=== PATIENT | female | born 1995 | race Caucasian/White ===

== ENCOUNTER 2017-05-09 21:55 | Emergency (ER) | payer MEDICAID, OTHER, SELFPAY ==
[~2017-05-09] VITALS: Ht 160 cm; Wt 51.0 kg
[~2017-05-09 21:55] MED LIST: BACT400T; CEPH500C; IBUP600T; ROCE1INJ
[2017-05-09 21:56] VITALS: BP_DIAS 57
[2017-05-09] MEDS ORDERED: BENA25TA10 PO (22:38)
[2017-05-09] MEDS ORDERED: PRED10TA2 PO (22:38)
[2017-05-09] MEDS ORDERED: diphenhydrAMINE 50 MG CAP PO ONE (22:45)
[2017-05-09] MEDS ORDERED: predniSONE 20 MG TAB PO ONE (22:45)
[2017-05-09 23:26] VITALS: BP_SYST 62
== END 2017-05-09 23:26 | disposition home or self-care (01) ==
LOC: M ED 21:55
DX: L25.5 Unspecified contact dermatitis due to plants, except food (principal); L29.9 Pruritus, unspecified; Z87.891 Personal history of nicotine dependence

== ENCOUNTER 2018-07-08 23:31 | Emergency (ER) | payer OTHER, MEDICAID ==
[2018-07-09] MEDS: predniSONE 20 MG TAB PO (00:15)
[2018-07-09] MEDS: diphenhydrAMINE 25 MG CAP PO (00:15)
[2018-07-09] MEDS: FAMOTIDINE 20 MG TAB PO (00:15)
== END 2018-07-09 00:55 | disposition home or self-care (01) ==
LOC: M ED 23:31
DX: S80.862A Insect bite (nonvenomous), left lower leg, initial encounter (principal); W57.XXXA Bitten or stung by nonvenomous insect and other nonvenomous arthropods, initial encounter; Y92.89 Other specified places as the place of occurrence of the external cause; Z91.030 Bee allergy status; Z87.891 Personal history of nicotine dependence
CPT/HCPCS: 99282

== ENCOUNTER 2018-08-02 22:29 | Emergency (ER) | payer OTHER, MEDICAID ==
[2018-08-02] MEDS: TUSSICAPS ER 10/8MG CAPSULE PO (23:26)
[2018-08-02] MEDS: IBUPROFEN 600 MG TAB PO (23:26)
== END 2018-08-02 23:30 | disposition home or self-care (01) ==
LOC: M ED 22:29
DX: J20.9 Acute bronchitis, unspecified (principal); F90.9 Attention-deficit hyperactivity disorder, unspecified type; M41.9 Scoliosis, unspecified; Z87.891 Personal history of nicotine dependence; Z91.030 Bee allergy status
CPT/HCPCS: 99282

== ENCOUNTER 2019-02-21 12:35 | Emergency (ER) | payer MEDICAID, OTHER ==
[~2019-02-21] VITALS: Ht 160 cm; Wt 53.6 kg
[~2019-02-21 12:35] MED LIST changes: +BENA25TA10 PO; +GUAI1SOL2 PO; +IBUP-1022 PO; +PRED10TA2 PO; +PRED20TA PO; +TESS100C PO; +TUSS1CAP5 PO
[2019-02-21] MEDS ORDERED: NS 1,000 ML IV ONE (13:00)
[2019-02-21 13:21] LABS: HEMATOCRIT 41.9 % (36.0-47.0); MEAN CORPUSCULAR HEMOGLOBIN 32.9 pg (27.0-33.0); MEAN CORPUSCULAR HGB CONC 33.4 g/dl (32.0-36.5); MEAN CORPUSCULAR VOLUME 98.6 fl (80.0-96.0); PLATELET COUNT, AUTOMATED 345 10^3/uL (150-450); RED BLOOD COUNT 4.25 10^6/uL (4.00-5.40); WHITE BLOOD COUNT 7.4 10^3/uL (4.0-10.0)
[2019-02-21 13:53] LABS: BLOOD UREA NITROGEN 10 MG/DL (7-18); C REACTIVE PROTEIN QUANTITATIV < 0.30 MG/DL (0.00-0.30); CALCIUM LEVEL 8.5 MG/DL (8.5-10.1); CARBON DIOXIDE LEVEL 29 MEQ/L (21-32); CHLORIDE LEVEL 107 MEQ/L (98-107); CREATININE FOR GFR 0.69 MG/DL (0.55-1.30); GLOMERULAR FILTRATION RATE > 60.0 (>60); GLUCOSE, FASTING 84 MG/DL (70-100); POTASSIUM SERUM 3.6 MEQ/L (3.5-5.1); SODIUM LEVEL 141 MEQ/L (136-145)
[2019-02-21] MEDS ORDERED: ISOVUE-370 76% 100ML VIAL (Q9967) As Ordered ONE (14:08)
[2019-02-21] MEDS ORDERED: CLINDAMYCIN 900 MG in APPROPRIATE DILUENT 1 EA IV ONE (16:00)
[2019-02-21] MEDS ORDERED: BACT800T5 PO (16:31)
[2019-02-21] MEDS ORDERED: BACTRIM 160MG/800MG DS TAB PO ONE (16:45)
[2019-02-21 16:52] VITALS: BP 109/54
[2019-02-22 01:35] LABS: ERYTHROCYTE SEDIMENTATION RATE 7 mm/hr (0-20)
--- NOTE | 2019-02-22 09:17 | REP ---
Maxillofacial CT with IV contrast for right orbital swelling: There is soft tissue edema in the right infraorbital area. There is no focal fluid collection. Findings are compatible with cellulitis. There is no abscess. The ocular globes and lenses are unremarkable. The orbital fat planes are unremarkable. There is a mucosal cyst in the right maxillary sinus. The visualized paranasal sinuses and mastoid air cells otherwise are clear. The skull base and sella turcica are unremarkable. Impression: Right infraorbital cellulitis. There is no abscess. Right maxillary sinus mucosal cyst. Electronically Signed by Chele Tadeo MD 02/21/2019 03:31 P
[2019-02-22] MEDS ORDERED: IBUP80TA PO (11:17)
== END 2019-02-21 17:28 | disposition home or self-care (01) ==
LOC: M ED 12:35
DX: L03.213 Periorbital cellulitis (principal); J34.1 Cyst and mucocele of nose and nasal sinus; Z91.030 Bee allergy status; F17.210 Nicotine dependence, cigarettes, uncomplicated
CPT/HCPCS: 70487; 80048; 83605; 85027; 85652; 86140; 87040; 96365; 99284; Q9967

== ENCOUNTER 2019-02-22 09:21 | Emergency (ER) | payer OTHER ==
[~2019-02-22] VITALS: Ht 160 cm; Wt 52.8 kg
[~2019-02-22 09:21] MED LIST changes: +BACT800T5 PO
[2019-02-22 09:22] VITALS: BP 105/59
[2019-02-22] MEDS ORDERED: NS 1,000 ML IV ONE (09:45)
[2019-02-22 10:03] LABS: HEMATOCRIT 38.4 % (36.0-47.0); MEAN CORPUSCULAR HEMOGLOBIN 33.5 pg (27.0-33.0); MEAN CORPUSCULAR HGB CONC 33.9 g/dl (32.0-36.5); PLATELET COUNT, AUTOMATED 320 10^3/uL (150-450); RED BLOOD COUNT 3.88 10^6/uL (4.00-5.40); WHITE BLOOD COUNT 6.9 10^3/uL (4.0-10.0)
[2019-02-22 10:13] LABS: BLOOD UREA NITROGEN 8 MG/DL (7-18); C REACTIVE PROTEIN QUANTITATIV < 0.30 MG/DL (0.00-0.30); CALCIUM LEVEL 8.3 MG/DL (8.5-10.1); CARBON DIOXIDE LEVEL 27 MEQ/L (21-32); CHLORIDE LEVEL 110 MEQ/L (98-107); CREATININE FOR GFR 0.75 MG/DL (0.55-1.30); GLOMERULAR FILTRATION RATE > 60.0 (>60); GLUCOSE, FASTING 91 MG/DL (70-100); SODIUM LEVEL 142 MEQ/L (136-145)
[2019-02-22] MEDS ORDERED: CLINDAMYCIN 900 MG in APPROPRIATE DILUENT 1 EA IV ONE (10:45)
[2019-02-22] MEDS ORDERED: IBUP80TA PO (11:17)
== END 2019-02-22 11:24 | disposition home or self-care (01) ==
LOC: M ED 09:21
DX: L03.213 Periorbital cellulitis (principal); Z72.0 Tobacco use; Z91.030 Bee allergy status

== ENCOUNTER 2019-06-08 22:52 | Emergency (ER) | payer MEDICAID, OTHER ==
[~2019-06-08] VITALS: Ht 157.5 cm; Wt 55.9 kg
[~2019-06-08 22:52] MED LIST changes: +IBUP80TA PO
[2019-06-08 22:53] VITALS: BP 113/62
[2019-06-08] MEDS ORDERED: LAMO25TA4 PO (23:02)
== END 2019-06-09 00:55 | disposition left against medical advice (07) ==
LOC: M ED 22:52
DX: S29.009A Unspecified injury of muscle and tendon of unspecified wall of thorax, initial encounter (principal); X58.XXXA Exposure to other specified factors, initial encounter; Y92.9 Unspecified place or not applicable; Y93.9 Activity, unspecified; Y99.9 Unspecified external cause status; Z53.21 Procedure and treatment not carried out due to patient leaving prior to being seen by health care provider

== ENCOUNTER → 2019-07-22 | Outpatient (REF) | payer OTHER, MEDICAID ==
[~2019-07-22] MED LIST changes: +LAMO25TA4 PO
[2019-07-22 22:18] LABS: INFLUENZA A AMPLIFICATION NEGATIVE (NEGATIVE); INFLUENZA B AMPLIFICATION NEGATIVE (NEGATIVE)
== END ==
LOC: M LAB REF 09:44
PROVIDERS: ATTEND Physician Assistant
DX: J11.1 Influenza due to unidentified influenza virus with other respiratory manifestations (principal)

== ENCOUNTER 2019-08-17 10:06 | Emergency (ER) | payer MEDICAID, OTHER ==
[~2019-08-17] VITALS: Ht 157.5 cm; Wt 52.7 kg
[2019-08-17] MEDS ORDERED: METF-791 PO (10:16)
[2019-08-17] MEDS ORDERED: ARIP1TAB6 PO (10:16)
[2019-08-17] MEDS ORDERED: DIVA1TAB48 PO (10:16)
[2019-08-17] MEDS ORDERED: NAPROXEN 250 MG TAB PO ONE (11:15)
--- NOTE | 2019-08-17 11:48 | REP ---
Left hip: Two views. History: Left hip pain. Question injury. Findings: AP and frog-leg views of the left hip demonstrate smooth rounded femoral head and intact hip joint space. Periarticular soft tissues are unremarkable. There is mild clothing artifact. Impression: Negative radiographs of the left hip. Electronically Signed by Jason Blanton MD 08/17/2019 01:52 P
[2019-08-17] MEDS ORDERED: NAPR-837 PO (11:57)
[2019-08-17 12:03] VITALS: BP 106/56
== END 2019-08-17 12:04 | disposition home or self-care (01) ==
LOC: M ED 10:06
DX: M25.552 Pain in left hip (principal); M79.605 Pain in left leg; S76.012A Strain of muscle, fascia and tendon of left hip, initial encounter; X58.XXXA Exposure to other specified factors, initial encounter; Y92.89 Other specified places as the place of occurrence of the external cause; Y93.9 Activity, unspecified; Y99.9 Unspecified external cause status

== ENCOUNTER → 2019-08-24 | Outpatient (CLI) | payer OTHER ==
[~2019-08-24] MED LIST changes: +ARIP1TAB6 PO; +DIVA1TAB48 PO; +METF-791 PO; +NAPR-837 PO
[2019-08-24 07:01] LABS: HEMATOCRIT 41.4 % (36.0-47.0); HEMOGLOBIN 13.8 g/dl (12.0-15.5); MEAN CORPUSCULAR HEMOGLOBIN 33.1 pg (27.0-33.0); MEAN CORPUSCULAR HGB CONC 33.3 g/dl (32.0-36.5); MEAN CORPUSCULAR VOLUME 99.3 fl (80.0-96.0); PLATELET COUNT, AUTOMATED 332 10^3/uL (150-450); RED BLOOD COUNT 4.17 10^6/uL (4.00-5.40); WHITE BLOOD COUNT 13.2 10^3/uL (4.0-10.0)
[2019-08-24 07:31] LABS: ALBUMIN 3.7 GM/DL (3.2-5.2); ALT/SGPT 15 U/L (12-78); BILIRUBIN,TOTAL 0.3 MG/DL (0.2-1.0); BLOOD UREA NITROGEN 16 MG/DL (7-18); CALCIUM LEVEL 8.9 MG/DL (8.5-10.1); CARBON DIOXIDE LEVEL 27 MEQ/L (21-32); CHLORIDE LEVEL 109 MEQ/L (98-107); CHOLESTEROL LEVEL 162 MG/DL (<200); CHOLESTEROL RISK RATIO 3.056 (<5); GLOMERULAR FILTRATION RATE > 60.0 (>60); GLUCOSE, FASTING 90 MG/DL (70-100); HDL CHOLESTEROL 53 MG/DL (>40); LDL CHOLESTEROL 87 MG/DL (<100); NON-HDL-C 109 MG/DL; SODIUM LEVEL 141 MEQ/L (136-145); TRIGLYCERIDES LEVEL 108 MG/DL (<150); VALPROIC ACID (DEPAKOTE) 14.7 UG/ML (50.0-100.0)
== END ==
LOC: M LAB 06:24
PROVIDERS: ATTEND Psychiatry & Neurology Psychiatry
DX: F31.9 Bipolar disorder, unspecified (principal); F32.2 Major depressive disorder, single episode, severe without psychotic features

== ENCOUNTER → 2019-09-10 | Outpatient (CLI) | payer MEDICAID | LOC: M OUTALCOH 08:39 | PROVIDERS: ATTEND Psychiatry & Neurology Psychiatry | DX: F12.10 Cannabis abuse, uncomplicated (principal) ==

== ENCOUNTER 2019-09-29 13:04 | Outpatient (RCR) | payer MEDICAID | END 2019-10-03 | LOC: M OUTALCOH 13:04 | PROVIDERS: ATTEND Psychiatry & Neurology Psychiatry | DX: F12.10 Cannabis abuse, uncomplicated (principal) ==

== ENCOUNTER → 2019-10-31 | Outpatient (REF) | payer MEDICAID, OTHER | LOC: M LAB REF 13:54 | PROVIDERS: ATTEND Physician Assistant Medical | DX: R05 Cough (principal) ==

== ENCOUNTER 2019-12-17 10:57 | Emergency (ER) | payer MEDICAID, OTHER ==
[~2019-12-17] VITALS: Ht 157.5 cm; Wt 58.4 kg
[2019-12-17] MEDS ORDERED: REXU1TAB3 PO (11:09)
[2019-12-17] MEDS ORDERED: ONDANSETRON 4 MG ORAL DISINTEGRATING TAB (Q0162 PER 1MG) PO ONE (12:30)
[2019-12-17] MEDS ORDERED: ACETAMINOPHEN 325 MG TAB PO ONE (12:30)
[2019-12-17 12:51] LABS: INFLUENZA A AMPLIFICATION NEGATIVE (NEGATIVE); INFLUENZA B AMPLIFICATION POSITIVE (NEGATIVE)
[2019-12-17] MEDS ORDERED: BENZ200C70 PO (13:16)
[2019-12-17] MEDS ORDERED: ONDA4TAB6 PO (13:16)
[2019-12-17 13:26] VITALS: BP 102/67
== END 2019-12-17 13:32 | disposition home or self-care (01) ==
LOC: M ED 10:57
DX: J10.1 Influenza due to other identified influenza virus with other respiratory manifestations (principal); R50.9 Fever, unspecified; R53.83 Other fatigue; Z91.030 Bee allergy status; F17.218 Nicotine dependence, cigarettes, with other nicotine-induced disorders
CPT/HCPCS: 87502; 99283; Q0162

== ENCOUNTER 2020-06-20 22:05 | Emergency (ER) | payer OTHER, MEDICAID ==
[~2020-06-20 22:05] MED LIST changes: +ACETAMINOPHEN TAB 650MG DOSE (2X325MG) As Ordered ONE; +ACETAMINOPHEN TAB 650MG DOSE (2X325MG) ONE; +BENZ200C70 PO; +IBUPROFEN 600MG TAB As Ordered ONE; +IBUPROFEN 600MG TAB ONE; -METF-791 PO; +METF-838 PO; +ONDA4TAB6 PO; +REXU1TAB3 PO
[2020-06-20] MEDS ORDERED: MAGIC MOUTHWASH SUSPENSION BTL ONE (22:06)
[2020-06-20] MEDS ORDERED: BENZONATATE 100 MG CAP ONE (23:21)
[2020-06-20] MEDS ORDERED: AMOXICILLIN 500 MG CAP ONE (23:21)
[2020-06-20] MEDS ORDERED: BENZONATATE 100 MG CAP As Ordered ONE (23:21)
[2020-06-20] MEDS ORDERED: AMOXICILLIN 500 MG CAP As Ordered ONE (23:22)
== END 2020-06-20 23:50 | disposition home or self-care (01) ==
LOC: M ED 22:05
DX: J02.0 Streptococcal pharyngitis (principal); R05 Cough; R50.9 Fever, unspecified; Z91.030 Bee allergy status

== ENCOUNTER → 2020-09-21 | Outpatient (REF) | payer OTHER ==
[~2020-09-21] MED LIST changes: -ACETAMINOPHEN TAB 650MG DOSE (2X325MG) As Ordered ONE; -ACETAMINOPHEN TAB 650MG DOSE (2X325MG) ONE; -IBUPROFEN 600MG TAB As Ordered ONE; -IBUPROFEN 600MG TAB ONE
[2020-09-21 13:49] LABS: HEMATOCRIT 38.9 % (36.0-47.0); MEAN CORPUSCULAR HEMOGLOBIN 33.1 pg (27.0-33.0); MEAN CORPUSCULAR HGB CONC 33.4 g/dl (32.0-36.5); PLATELET COUNT, AUTOMATED 366 10^3/uL (150-450); RED BLOOD COUNT 3.93 10^6/uL (4.00-5.40); WHITE BLOOD COUNT 7.7 10^3/uL (4.0-10.0)
[2020-09-21 14:18] LABS: ALBUMIN 3.8 GM/DL (3.2-5.2); ALT/SGPT 17 U/L (12-78); BILIRUBIN,TOTAL 0.4 MG/DL (0.2-1.0); BLOOD UREA NITROGEN 13 MG/DL (7-18); CALCIUM LEVEL 8.7 MG/DL (8.5-10.1); CARBON DIOXIDE LEVEL 29 MEQ/L (21-32); CHLORIDE LEVEL 109 MEQ/L (98-107); CREATININE FOR GFR 0.61 MG/DL (0.55-1.30); FERRITIN 54 NG/ML (8-252); GLOMERULAR FILTRATION RATE > 60.0 (>60); GLUCOSE, FASTING 79 MG/DL (70-100); IRON (FE) 99 UG/DL (50-170); PERCENT SATURATION 40.6 % (13.2-45.0); POTASSIUM SERUM 4.6 MEQ/L (3.5-5.1); SODIUM LEVEL 141 MEQ/L (136-145); THYROID STIMULATING HORMONE 0.282 uIU/ML (0.358-3.740); TOTAL IRON BINDING CAPACITY 244 UG/DL (250-450); TOTAL PROTEIN 6.7 GM/DL (6.4-8.2)
[2020-09-21 14:20] LABS: VITAMIN B12 LEVEL 252 PG/ML (247-911)
== END ==
LOC: M SFHCPLAZ 11:48
PROVIDERS: ATTEND Nurse Practitioner Adult Health
DX: R53.83 Other fatigue (principal); T14.8XXA Other injury of unspecified body region, initial encounter; Z83.49 Family history of other endocrine, nutritional and metabolic diseases

== ENCOUNTER 2020-11-26 15:46 | Emergency (ER) | payer OTHER ==
[~2020-11-26] VITALS: Ht 160 cm; Wt 61.9 kg
--- NOTE | 2020-11-26 16:54 | REP ---
INDICATION: trauma. COMPARISON: None. TECHNIQUE: Four views FINDINGS: There is a subtle lucency seen in the lunate I cannot rule out a nondisplaced fracture.. IMPRESSION: Possible hairline fracture of the lunate. <Electronically signed by Graeme Chairez > 11/26/20 [id number]
--- NOTE | 2020-11-26 16:58 | REP ---
INDICATION: trauma, posterior lower rib pain. COMPARISON: Two view chest of 11/01/2013 FINDINGS: Multiple views of the left ribs show no fracture or osseous lesion. The accompanying frontal view of the chest shows no cardiomegaly, infiltrates, effusions, or pneumothoraces. IMPRESSION: Negative left rib series. <Electronically signed by Graeme Chairez > 11/26/20 [id number]
[2020-11-26 18:11] VITALS: BP 114/62
== END 2020-11-26 18:35 | disposition home or self-care (01) ==
LOC: M ED 15:46
DX: S20.211A Contusion of right front wall of thorax, initial encounter (principal); S62.121A Displaced fracture of lunate [semilunar], right wrist, initial encounter for closed fracture; W01.0XXA Fall on same level from slipping, tripping and stumbling without subsequent striking against object, initial encounter; Y92.019 Unspecified place in single-family (private) house as the place of occurrence of the external cause; Y93.9 Activity, unspecified; Y99.9 Unspecified external cause status; Z91.030 Bee allergy status

== ENCOUNTER → 2021-01-04 | Outpatient (CLI) | payer OTHER ==
--- NOTE | 2021-01-04 14:20 | REPPI ---
INDICATION: MID BACK PAIN COMPARISON: None. TECHNIQUE: AP, lateral, bilateral oblique, and coned-down views of the lumbar spine. FINDINGS: Significant scoliosis is appreciated through the thoracolumbar spine. Vertebral bodies are intact and without acute fracture/compression injury or subluxation. Spondylolysis at L3 cannot be excluded. IMPRESSION: Significant scoliosis and possible L3 spondylolysis without spondylolisthesis. <Electronically signed by Fernando Yanes > 01/04/21 [id number]
--- NOTE | 2021-01-04 14:21 | REPPI ---
INDICATION: MID BACK PAIN COMPARISON: None. TECHNIQUE: AP, lateral, and swimmers views. FINDINGS: Significant scoliosis through the thoracolumbar spine is appreciated. Vertebral bodies are otherwise intact and relatively normal. Disc spaces are relatively normal. IMPRESSION: Marked scoliosis. <Electronically signed by Fernando Yanes > 01/04/21 [id number]
== END ==
LOC: M PLAIMG 13:51
PROVIDERS: ATTEND Nurse Practitioner Adult Health
DX: M41.85 Other forms of scoliosis, thoracolumbar region (principal); M54.6 Pain in thoracic spine

== ENCOUNTER 2022-09-19 14:15 | Emergency (ER) | payer OTHER ==
[~2022-09-19] VITALS: Ht 157.5 cm; Wt 56.4 kg
[2022-09-19] MEDS ORDERED: ACETAMINOPHEN 325 MG TAB PO ONE (14:50)
[2022-09-19] MEDS ORDERED: ONDANSETRON 4MG ORAL DISINTEGRATING TAB PO ONE (14:50)
[2022-09-19 15:11] LABS: BASO % 0.3 % (0.0-1.0); EOS # 0.1 10^3/uL (0.0-0.5); EOS % 0.5 % (0.0-3.0); HEMATOCRIT 33.6 % (36.0-47.0); HEMOGLOBIN 11.8 g/dl (12.0-15.5); LYMPH # 3.1 10^3/uL (1.5-5.0); LYMPH % 24.3 % (24.0-44.0); MEAN CORPUSCULAR HEMOGLOBIN 32.9 pg (27.0-33.0); MEAN CORPUSCULAR HGB CONC 35.1 g/dl (32.0-36.5); MEAN CORPUSCULAR VOLUME 93.6 fl (80.0-96.0); MONO # 0.8 10^3/uL (0.0-0.8); MONO % 5.9 % (2.0-8.0); NEUTROPHILS # 8.8 10^3/uL (1.5-8.5); NEUTROPHILS % 68.5 % (36.0-66.0); PLATELET COUNT, AUTOMATED 314 10^3/uL (150-450); RED BLOOD COUNT 3.59 10^6/uL (4.00-5.40); WHITE BLOOD COUNT 12.8 10^3/uL (4.0-10.0)
[2022-09-19] MEDS ORDERED: METR-265 PO (15:50)
[2022-09-19 16:08] LABS: BLOOD UREA NITROGEN 10 MG/DL (9-23); CALCIUM LEVEL 8.9 MG/DL (8.5-10.1); CARBON DIOXIDE LEVEL 24 MMOL/L (20-31); CHLORIDE LEVEL 103 MMOL/L (98-107); CREATININE FOR GFR 0.38 MG/DL (0.55-1.30); GLOMERULAR FILTRATION RATE > 60.0 (>60); GLUCOSE, FASTING 79 MG/DL (60-100); POTASSIUM SERUM 3.6 MMOL/L (3.5-5.1); SODIUM LEVEL 138 MMOL/L (136-145)
[2022-09-19 16:27] LABS: HCG, SERUM QUANTITATIVE 71175.8 MIU/ML (<4.2)
[2022-09-19 17:04] LABS: GC DNA AMPLIFICATION NEGATIVE (NEGATIVE)
[2022-09-19 17:24] VITALS: BP 125/56
== END 2022-09-19 17:28 | disposition home or self-care (01) ==
LOC: M ED 14:15
DX: O23.591 Infection of other part of genital tract in pregnancy, first trimester (principal); O99.611 Diseases of the digestive system complicating pregnancy, first trimester; R14.0 Abdominal distension (gaseous); Z3A.13 13 weeks gestation of pregnancy; Z87.891 Personal history of nicotine dependence; Z91.030 Bee allergy status; Z79.1 Long term (current) use of non-steroidal anti-inflammatories (NSAID); Z79.811 Long term (current) use of aromatase inhibitors; Z79.899 Other long term (current) drug therapy

== ENCOUNTER → 2022-09-20 | Outpatient (CLI) | payer OTHER ==
[~2022-09-20] MED LIST changes: +METR-265 PO
[2022-09-20 18:27] LABS: HEMATOCRIT 35.6 % (36.0-47.0); MEAN CORPUSCULAR HEMOGLOBIN 33.1 pg (27.0-33.0); MEAN CORPUSCULAR HGB CONC 33.7 g/dl (32.0-36.5); MEAN CORPUSCULAR VOLUME 98.1 fl (80.0-96.0); PLATELET COUNT, AUTOMATED 342 10^3/uL (150-450); RED BLOOD COUNT 3.63 10^6/uL (4.00-5.40)
[2022-09-20 19:18] LABS: HEPATITIS C VIRUS ABY INDEX 0.1 INDEX (<0.8); HIV 1&2 SCREEN CENTAUR NEGATIVE (NEGATIVE)
== END ==
LOC: M PLALAB 12:16
PROVIDERS: ATTEND Advanced Practice Midwife
DX: Z34.01 Encounter for supervision of normal first pregnancy, first trimester (principal); Z3A.00 Weeks of gestation of pregnancy not specified

== ENCOUNTER 2022-10-07 12:36 | Emergency (ER) | payer OTHER ==
[~2022-10-07] VITALS: Ht 160 cm; Wt 57.5 kg
[2022-10-07 12:37] VITALS: BP 130/57
[2022-10-07] MEDS ORDERED: DOCU100C16 (12:43)
== END 2022-10-07 14:03 | disposition home or self-care (01) ==
LOC: M ED 12:36
DX: O99.611 Diseases of the digestive system complicating pregnancy, first trimester (principal); K59.00 Constipation, unspecified; F17.200 Nicotine dependence, unspecified, uncomplicated; Z3A.15 15 weeks gestation of pregnancy; Z91.030 Bee allergy status; Z79.899 Other long term (current) drug therapy

== ENCOUNTER 2022-10-19 17:21 | Emergency (ER) | payer OTHER, MEDICAID ==
[~2022-10-19] VITALS: Ht 157.5 cm; Wt 58.4 kg
[~2022-10-19 17:21] MED LIST changes: +DOCU100C16
[2022-10-19 19:55] LABS: BASO % 0.3 % (0.0-1.0); EOS # 0.1 10^3/uL (0.0-0.5); EOS % 0.4 % (0.0-3.0); HEMATOCRIT 30.6 % (36.0-47.0); HEMOGLOBIN 10.8 g/dl (12.0-15.5); LYMPH # 1.1 10^3/uL (1.5-5.0); LYMPH % 9.1 % (24.0-44.0); MEAN CORPUSCULAR HEMOGLOBIN 33.1 pg (27.0-33.0); MEAN CORPUSCULAR HGB CONC 35.3 g/dl (32.0-36.5); MEAN CORPUSCULAR VOLUME 93.9 fl (80.0-96.0); MONO % 8.4 % (2.0-8.0); NEUTROPHILS # 9.4 10^3/uL (1.5-8.5); NEUTROPHILS % 81.3 % (36.0-66.0); PLATELET COUNT, AUTOMATED 279 10^3/uL (150-450); RED BLOOD COUNT 3.26 10^6/uL (4.00-5.40); WHITE BLOOD COUNT 11.6 10^3/uL (4.0-10.0)
[2022-10-19 20:14] LABS: LIPASE 27 U/L (12-53)
[2022-10-19 20:16] LABS: ALBUMIN 3.1 G/DL (3.2-5.2); ALKALINE PHOSPHATASE 54 U/L (46-116); ALT/SGPT 24 U/L (7.0-40); AST/SGOT 28 U/L (<34); BILIRUBIN,DIRECT < 0.1 MG/DL (<0.4); BILIRUBIN,TOTAL 0.3 MG/DL (0.3-1.2); BLOOD UREA NITROGEN 9 MG/DL (9-23); CALCIUM LEVEL 9.3 MG/DL (8.5-10.1); CARBON DIOXIDE LEVEL 19 MMOL/L (20-31); CHLORIDE LEVEL 104 MMOL/L (98-107); CREATININE FOR GFR 0.41 MG/DL (0.55-1.30); GLOMERULAR FILTRATION RATE > 60.0 (>60); GLUCOSE, FASTING 73 MG/DL (60-100); POTASSIUM SERUM 3.9 MMOL/L (3.5-5.1); SODIUM LEVEL 134 MMOL/L (136-145); TOTAL PROTEIN 6.2 G/DL (5.7-8.2)
[2022-10-19] MEDS ORDERED: ACETAMINOPHEN 1000MG 100ML IV BAG IV ONE (20:40)
[2022-10-19] MEDS ORDERED: ONDANSETRON 4MG 2ML VIAL IV ONE (22:00)
[2022-10-19] MEDS ORDERED: ONDA4TAB6 PO (23:33)
[2022-10-19 23:37] VITALS: BP 111/60
[2022-10-19 23:43] LABS: GC DNA AMPLIFICATION NEGATIVE (NEGATIVE)
== END 2022-10-19 23:47 | disposition home or self-care (01) ==
LOC: M ED 17:21
DX: O26.892 Other specified pregnancy related conditions, second trimester (principal); R10.2 Pelvic and perineal pain; F31.9 Bipolar disorder, unspecified; M41.9 Scoliosis, unspecified; Z91.030 Bee allergy status; Z3A.19 19 weeks gestation of pregnancy; Z79.899 Other long term (current) drug therapy
CPT/HCPCS: 76815; 80048; 80076; 81002; 83690; 85025; 87210; 87661; 87810; 87850; 96374; 96375; 99284; J0131; J2405

== ENCOUNTER → 2022-11-07 | Outpatient (REF) | payer OTHER ==
[2022-11-07 19:38] LABS: GC DNA AMPLIFICATION NEGATIVE (NEGATIVE)
== END ==
LOC: M SFHCWAGY 16:57
PROVIDERS: ATTEND Advanced Practice Midwife
DX: Z34.01 Encounter for supervision of normal first pregnancy, first trimester (principal)

== ENCOUNTER → 2022-11-07 | Outpatient (CLI) | payer OTHER | LOC: M WHC 07:06 | PROVIDERS: ATTEND Obstetrics & Gynecology | DX: Z34.92 Encounter for supervision of normal pregnancy, unspecified, second trimester (principal); Z3A.20 20 weeks gestation of pregnancy ==

== ENCOUNTER → 2022-12-21 | Outpatient (CLI) | payer OTHER, MEDICAID ==
[2022-12-21 14:15] LABS: HEMATOCRIT 29.2 % (36.0-47.0); HEMOGLOBIN 9.8 g/dl (12.0-15.5); MEAN CORPUSCULAR HEMOGLOBIN 33.6 pg (27.0-33.0); MEAN CORPUSCULAR HGB CONC 33.6 g/dl (32.0-36.5); PLATELET COUNT, AUTOMATED 349 10^3/uL (150-450); RED BLOOD COUNT 2.92 10^6/uL (4.00-5.40); WHITE BLOOD COUNT 13.1 10^3/uL (4.0-10.0)
[2022-12-21 15:36] LABS: GC DNA AMPLIFICATION NEGATIVE (NEGATIVE)
== END ==
LOC: M PLALAB 09:17
PROVIDERS: ATTEND Specialist
DX: Z34.02 Encounter for supervision of normal first pregnancy, second trimester (principal)

== ENCOUNTER → 2023-01-02 | Outpatient (CLI) | payer OTHER ==
[~2023-01-02] MED LIST changes: +PRENTAB7
== END ==
LOC: M RAD 11:56
PROVIDERS: ATTEND Specialist
DX: Z34.02 Encounter for supervision of normal first pregnancy, second trimester (principal); Z3A.28 28 weeks gestation of pregnancy

== ENCOUNTER 2023-01-04 08:39 | Emergency (ER) | payer OTHER ==
[~2023-01-04] VITALS: Ht 160 cm; Wt 66.2 kg
[~2023-01-04 08:39] MED LIST changes: -PRENTAB7
[2023-01-04] MEDS ORDERED: PRENTAB7 (08:50)
[2023-01-04 09:48] LABS: HEMATOCRIT 28.8 % (36.0-47.0); HEMOGLOBIN 9.8 g/dl (12.0-15.5); MEAN CORPUSCULAR HEMOGLOBIN 33.4 pg (27.0-33.0); MEAN CORPUSCULAR VOLUME 98.3 fl (80.0-96.0); PLATELET COUNT, AUTOMATED 283 10^3/uL (150-450); RED BLOOD COUNT 2.93 10^6/uL (4.00-5.40); WHITE BLOOD COUNT 14.9 10^3/uL (4.0-10.0)
[2023-01-04 10:10] LABS: BLOOD UREA NITROGEN 8 MG/DL (9-23); CALCIUM LEVEL 8.3 MG/DL (8.5-10.1); CARBON DIOXIDE LEVEL 26 MMOL/L (20-31); CHLORIDE LEVEL 103 MMOL/L (98-107); CREATININE FOR GFR 0.46 MG/DL (0.55-1.30); GLOMERULAR FILTRATION RATE > 60.0 (>60); GLUCOSE, FASTING 96 MG/DL (60-100); POTASSIUM SERUM 3.9 MMOL/L (3.5-5.1); SODIUM LEVEL 135 MMOL/L (136-145)
[2023-01-04 10:38] LABS: APPEARANCE, URINE CLEAR (CLEAR); BACTERIA, URINE AUTO 1+ (NEGATIVE); BILIRUBIN, URINE AUTO NEGATIVE (NEGATIVE); BLOOD, URINE BLOOD NEGATIVE (NEGATIVE); COLOR, URINE YELLOW (YELLOW); GLUCOSE, URINE (UA) AUTO NEGATIVE (NEGATIVE); KETONE, URINE AUTO NEGATIVE (NEGATIVE); LEUKOCYTE ESTERASE, URINE AUTO NEGATIVE (NEGATIVE); NITRITE, URINE AUTO NEGATIVE (NEGATIVE); PROTEIN, URINE AUTO NEGATIVE (NEGATIVE); RBC, URINE AUTO 1 /HPF (0-3); SPECIFIC GRAVITY URINE AUTO 1.008 (1.002-1.035); SQUAMOUS EPITHELIAL CELL UR AU 3 /HPF (0-6); UROBILINOGEN, URINE AUTO 0.2 mg/dL (0.0-2.0); WBC, URINE AUTO 1 /HPF (0-3)
[2023-01-04] MEDS ORDERED: NS 1,000 ML IV ONE (11:40)
[2023-01-04] MEDS ORDERED: METOCLOPRAMIDE INJ 10MG/2ML VIAL IV ONE (11:45)
[2023-01-04 14:44] VITALS: BP 119/67
== END 2023-01-04 15:26 | disposition home or self-care (01) ==
LOC: M ED 08:39
DX: O98.513 Other viral diseases complicating pregnancy, third trimester (principal); U07.1 COVID-19; O26.893 Other specified pregnancy related conditions, third trimester; M54.50 Low back pain, unspecified; Z91.030 Bee allergy status; Z3A.30 30 weeks gestation of pregnancy; Z79.810 Long term (current) use of selective estrogen receptor modulators (SERMs)
CPT/HCPCS: 80048; 81001; 85027; 87486; 87581; 87633; 87798; 96361; 96374; 99284; J2765

== ENCOUNTER → 2023-01-25 | Outpatient (CLI) | payer OTHER ==
[~2023-01-25] MED LIST changes: +PRENTAB7
== END ==
LOC: M LAB 07:15
PROVIDERS: ATTEND Advanced Practice Midwife
DX: Z34.80 Encounter for supervision of other normal pregnancy, unspecified trimester (principal)

== ENCOUNTER 2023-02-12 12:31 | Outpatient (CLI) | payer MEDICAID, OTHER ==
[~2023-02-12] VITALS: Ht 157.5 cm; Wt 68.9 kg
[~2023-02-12 12:31] MED LIST changes: +ALBUTEROL SULFATE 2.5MG/0.5ML INH NEB SOLN INH PRN; +EPINEPHrine INJ 1 MG/ML 1ML AMP IM PRN; +FERRIC CARBOXYMALTOSE INJ 750 MG in NS 250 ML (>50kg) IV ONE; +NS 1,000 ML IV SCH; +diphenhydrAMINE 50MG/ML VIAL IV PRN; +methylPREDNISolone 125MG 2ML VIAL IV PRN
[2023-02-12 12:44] VITALS: BP 134/81
[2023-02-12 14:46] VITALS: BP 123/64
== END 2023-02-12 14:00 | disposition home or self-care (01) ==
LOC: M INFU 12:31
PROVIDERS: ATTEND Obstetrics & Gynecology
DX: D50.9 Iron deficiency anemia, unspecified (principal)
CPT/HCPCS: 96365; J1439

== ENCOUNTER 2023-02-15 13:52 | Outpatient (CLI) | payer OTHER ==
[~2023-02-15] VITALS: Ht 160 cm; Wt 65.9 kg
[~2023-02-15 13:52] MED LIST changes: -ALBUTEROL SULFATE 2.5MG/0.5ML INH NEB SOLN INH PRN; -EPINEPHrine INJ 1 MG/ML 1ML AMP IM PRN; -FERRIC CARBOXYMALTOSE INJ 750 MG in NS 250 ML (>50kg) IV ONE; -NS 1,000 ML IV SCH; -diphenhydrAMINE 50MG/ML VIAL IV PRN; -methylPREDNISolone 125MG 2ML VIAL IV PRN
[2023-02-15] MEDS ORDERED: PREN1TAB18 PO (14:14)
[2023-02-15] MEDS ORDERED: ONDA-83 PO (14:15)
[2023-02-15 14:17] VITALS: BP 122/69
[2023-02-15] MEDS ORDERED: HOME MED LIST COMPLETE! XX SCH (14:20)
[2023-02-15] MEDS ORDERED: LR 1,000 ML IV ONE (14:25)
[2023-02-15] MEDS ORDERED: LR 1,000 ML IV SCH (14:25)
[2023-02-15 15:07] LABS: HEMATOCRIT 31.8 % (36.0-47.0); HEMOGLOBIN 11.1 g/dl (12.0-15.5); MEAN CORPUSCULAR HEMOGLOBIN 33.8 pg (27.0-33.0); MEAN CORPUSCULAR HGB CONC 34.9 g/dl (32.0-36.5); PLATELET COUNT, AUTOMATED 421 10^3/uL (150-450); RED BLOOD COUNT 3.28 10^6/uL (4.00-5.40); WHITE BLOOD COUNT 16.6 10^3/uL (4.0-10.0)
[2023-02-15 15:16] LABS: APPEARANCE, URINE CLOUDY (CLEAR); BACTERIA, URINE AUTO 1+ (NEGATIVE); BILIRUBIN, URINE AUTO NEGATIVE (NEGATIVE); BLOOD, URINE BLOOD NEGATIVE (NEGATIVE); COLOR, URINE YELLOW (YELLOW); GLUCOSE, URINE (UA) AUTO NEGATIVE (NEGATIVE); KETONE, URINE AUTO 2+ mg/dL (NEGATIVE); LEUKOCYTE ESTERASE, URINE AUTO NEGATIVE (NEGATIVE); MUCUS, URINE SMALL (NEGATIVE); NITRITE, URINE AUTO NEGATIVE (NEGATIVE); PROTEIN, URINE AUTO 1+ mg/dL (NEGATIVE); RBC, URINE AUTO 2 /HPF (0-3); SPECIFIC GRAVITY URINE AUTO 1.016 (1.002-1.035); SQUAMOUS EPITHELIAL CELL UR AU 50 /HPF (0-6); UROBILINOGEN, URINE AUTO 0.2 mg/dL (0.0-2.0); WBC, URINE AUTO 4 /HPF (0-3)
[2023-02-15] MEDS ORDERED: ONDANSETRON 4MG 2ML VIAL IV ONE (15:45)
[2023-02-15] MEDS ORDERED: REGL10TA6 PO (16:59)
== END 2023-02-15 17:10 | disposition home or self-care (01) ==
LOC: M LDO 13:52
PROVIDERS: ATTEND Advanced Practice Midwife
DX: O21.8 Other vomiting complicating pregnancy (principal); O99.013 Anemia complicating pregnancy, third trimester; D64.9 Anemia, unspecified; Z3A.34 34 weeks gestation of pregnancy
CPT/HCPCS: 59025; 81001; 85027; 96360; 96374; G0463; J2405

== ENCOUNTER 2023-02-19 11:45 | Outpatient (CLI) | payer OTHER ==
[~2023-02-19] VITALS: Ht 157.5 cm; Wt 69.0 kg
[~2023-02-19 11:45] MED LIST changes: +ALBUTEROL SULFATE 2.5MG/0.5ML INH NEB SOLN INH PRN; +EPINEPHrine INJ 1 MG/ML 1ML AMP IM PRN; +ONDA-83 PO; +PREN1TAB18 PO; +REGL10TA6 PO; +diphenhydrAMINE 50MG/ML VIAL IV PRN; +methylPREDNISolone 125MG 2ML VIAL IV PRN
[2023-02-19 11:54] VITALS: BP 133/65
[2023-02-19 13:00] VITALS: BP 126/73
[2023-02-19] MEDS ORDERED: FERRIC CARBOXYMALTOSE INJ 750 MG in NS 250 ML (>50kg) IV ONE ×3 (13:00)
[2023-02-19] MEDS ORDERED: diphenhydrAMINE 25MG CAP PO ONE (13:00)
[2023-02-19] MEDS ORDERED: NS 1,000 ML IV SCH (13:00)
[2023-02-19] MEDS ORDERED: ACETAMINOPHEN TAB 650MG DOSE (2X325MG) PO ONE (13:00)
== END 2023-02-19 13:00 ==
LOC: M INFU 11:45
PROVIDERS: ATTEND Obstetrics & Gynecology
DX: D50.9 Iron deficiency anemia, unspecified (principal); Z91.030 Bee allergy status
CPT/HCPCS: 96365; J1439

== ENCOUNTER → 2023-02-20 | Outpatient (REF) | payer OTHER, MEDICAID ==
[~2023-02-20] MED LIST changes: -ALBUTEROL SULFATE 2.5MG/0.5ML INH NEB SOLN INH PRN; -EPINEPHrine INJ 1 MG/ML 1ML AMP IM PRN; -diphenhydrAMINE 50MG/ML VIAL IV PRN; -methylPREDNISolone 125MG 2ML VIAL IV PRN
== END ==
LOC: M SFHCWAGY 17:02
PROVIDERS: ATTEND Specialist
DX: Z34.03 Encounter for supervision of normal first pregnancy, third trimester (principal); Z53.9 Procedure and treatment not carried out, unspecified reason

== ENCOUNTER → 2023-02-27 | Outpatient (REF) | payer MEDICAID, OTHER ==
[~2023-02-27] MED LIST changes: +ACET-683 PO; +FAMO20TA PO; +METO10TA2 PO
== END ==
LOC: M PLALAB 14:55
PROVIDERS: ATTEND Obstetrics & Gynecology
DX: Z34.80 Encounter for supervision of other normal pregnancy, unspecified trimester (principal)

== ENCOUNTER 2023-03-01 06:41 | Outpatient (CLI) | payer MEDICAID, OTHER ==
[~2023-03-01] VITALS: Ht 160 cm; Wt 68.1 kg
[~2023-03-01 06:41] MED LIST changes: -ACET-683 PO; -FAMO20TA PO; -METO10TA2 PO
[2023-03-01 07:02] VITALS: BP 140/88
[2023-03-01] MEDS ORDERED: FAMO20TA PO (07:17)
[2023-03-01 07:18] VITALS: BP 132/79
[2023-03-01] MEDS ORDERED: METO10TA2 PO (08:27)
[2023-03-01] MEDS ORDERED: HOME MED LIST COMPLETE! XX SCH (08:35)
[2023-03-01] MEDS: ONDANSETRON 4MG ORAL DISINTEGRATING TAB PO ONE (08:52)
[2023-03-01] MEDS: ACETAMINOPHEN 500 MG TAB PO ONE (09:30)
[2023-03-01] MEDS ORDERED: ONDA4TAB6 PO (10:34)
== END 2023-03-01 10:57 | disposition home or self-care (01) ==
LOC: M LDO 06:41
PROVIDERS: ATTEND Specialist
DX: O21.8 Other vomiting complicating pregnancy (principal); Z3A.36 36 weeks gestation of pregnancy
CPT/HCPCS: 59025; G0463

== ENCOUNTER 2023-03-07 18:24 | Outpatient (CLI) | payer OTHER, MEDICAID ==
[~2023-03-07] VITALS: Ht 160 cm; Wt 68.2 kg
[~2023-03-07 18:24] MED LIST changes: +FAMO20TA PO; +METO10TA2 PO
[2023-03-07 18:51] VITALS: BP 115/71
[2023-03-07] MEDS ORDERED: HOME MED LIST COMPLETE! XX SCH (18:55)
[2023-03-07] MEDS ORDERED: FAMOTIDINE 20 MG TAB PO ONE (19:50)
[2023-03-07 19:56] LABS: HEMATOCRIT 31.6 % (36.0-47.0); HEMOGLOBIN 11.1 g/dl (12.0-15.5); MEAN CORPUSCULAR HGB CONC 35.1 g/dl (32.0-36.5); MEAN CORPUSCULAR VOLUME 96.9 fl (80.0-96.0); PLATELET COUNT, AUTOMATED 358 10^3/uL (150-450); RED BLOOD COUNT 3.26 10^6/uL (4.00-5.40); WHITE BLOOD COUNT 15.1 10^3/uL (4.0-10.0)
[2023-03-07 20:09] VITALS: BP 136/88
[2023-03-07 20:26] LABS: ALKALINE PHOSPHATASE 161 U/L (46-116); ALT/SGPT 17 U/L (7.0-40); AST/SGOT 20 U/L (<34); BILIRUBIN,TOTAL 0.4 MG/DL (0.3-1.2); BLOOD UREA NITROGEN 9 MG/DL (9-23); CALCIUM LEVEL 8.5 MG/DL (8.5-10.1); CARBON DIOXIDE LEVEL 23 MMOL/L (20-31); CHLORIDE LEVEL 106 MMOL/L (98-107); CREATININE FOR GFR 0.53 MG/DL (0.55-1.30); GLOMERULAR FILTRATION RATE > 60.0 (>60); GLUCOSE, FASTING 69 MG/DL (60-100); POTASSIUM SERUM 3.8 MMOL/L (3.5-5.1); SODIUM LEVEL 138 MMOL/L (136-145); TOTAL PROTEIN 5.9 G/DL (5.7-8.2)
== END 2023-03-07 20:50 | disposition home or self-care (01) ==
LOC: M LDO 18:24
PROVIDERS: ATTEND Obstetrics & Gynecology
DX: O26.893 Other specified pregnancy related conditions, third trimester (principal); R03.0 Elevated blood-pressure reading, without diagnosis of hypertension; Z3A.37 37 weeks gestation of pregnancy
CPT/HCPCS: 36415; 59025; 80053; 82570; 84156; 85027; G0463

== ENCOUNTER 2023-03-11 08:55 | Inpatient (IN) | payer MEDICAID, OTHER ==
[2023-03-11] VITALS (15 sets, daily range): BP systolic 122–160; BP diastolic 63–90
[~2023-03-11] VITALS: Ht 160 cm; Wt 66.6 kg
[2023-03-11] MEDS ORDERED: HOME MED LIST COMPLETE! XX SCH (09:25)
[2023-03-11 10:44] LABS: HEMATOCRIT 32.5 % (36.0-47.0); HEMOGLOBIN 11.5 g/dl (12.0-15.5); MEAN CORPUSCULAR HEMOGLOBIN 34.1 pg (27.0-33.0); MEAN CORPUSCULAR HGB CONC 35.4 g/dl (32.0-36.5); MEAN CORPUSCULAR VOLUME 96.4 fl (80.0-96.0); PLATELET COUNT, AUTOMATED 346 10^3/uL (150-450); RED BLOOD COUNT 3.37 10^6/uL (4.00-5.40); WHITE BLOOD COUNT 12.1 10^3/uL (4.0-10.0)
[2023-03-11] MEDS ORDERED: PENICILLIN G POTASSIUM 5 MU IV 5 MU in D5W MINI-BAG PLUS 100 ML IV STA ×2 (12:17→21:24)
[2023-03-11] MEDS ORDERED: OXYTOCIN DRIP 30 UNITS in IV 1 EA IV PRN ×5 (12:20→14:55)
[2023-03-11] MEDS ORDERED: TRANEXAMIC ACID INJection 1,000 MG in NS 100 ML IV PRN ×2 (12:20→14:55)
[2023-03-11] MEDS ORDERED: METHYLERGONOVINE MALEATE 0.2MG/ML 1ML VIAL IM PRN ×2 (12:20→14:55)
[2023-03-11] MEDS ORDERED: CARBOPROST TROMETHAMINE 250 MCG/ML AMP IM PRN (12:20)
[2023-03-11] MEDS ORDERED: OXYTOCIN INJ 10UNITS/ML 1ML VIAL IV PRN ×2 (12:20→14:55)
[2023-03-11] MEDS ORDERED: LIDOCAINE 1% MDV 20ML VIAL INFIL PRN (12:20)
[2023-03-11] MEDS ORDERED: miSOPROStol 50MCG 1/2 TABLET PO ONE ×2 (12:30→16:30)
[2023-03-11] MEDS: ONDANSETRON 4MG 2ML VIAL IV SCH ×2 (14:55→20:42)
[2023-03-11] MEDS ORDERED: PEN G POT 3,000,000 UNIT/50 ML 3,000,000 UNIT in IV 1 EA IV SCH (16:20)
[2023-03-11] MEDS ORDERED: OXYTOCIN DRIP 30 UNITS in IV 1 EA IV SCH (21:20)
[2023-03-11] MEDS: LR 1,000 ML IV SCH (21:33)
[2023-03-11] MEDS ORDERED: LR 500 ML IV PRN (23:40)
[2023-03-11] MEDS ORDERED: NALOXONE INJ 0.4MG/1ML VIAL IV PRN (23:40)
[2023-03-11] MEDS ORDERED: ONDANSETRON 4MG 2ML VIAL IV PRN (23:40)
[2023-03-11] MEDS ORDERED: ePHEDrine SULFATE 25 MG/5 ML(5MG/ML) SYRINGE IVP PRN (23:40)
[2023-03-11] MEDS ORDERED: EPIDURAL/PCA KEYS XX PRN (23:40)
[2023-03-11] MEDS ORDERED: diphenhydrAMINE 50MG/ML VIAL IV PRN (23:40)
[2023-03-12] VITALS (50 sets, daily range): BP systolic 106–158; BP diastolic 55–95
[2023-03-12] MEDS: FENTANYL/ROPIVACAINE/NACL BAG 100 ML EPIDURAL SCH ×3 (00:24→17:34)
[2023-03-12] MEDS: PEN G POT 3,000,000 UNIT/50 ML 3,000,000 UNIT in IV 1 EA IV SCH ×5 (01:05→17:34)
[2023-03-12] MEDS: ONDANSETRON 4MG 2ML VIAL IV SCH ×3 (03:11→14:03)
[2023-03-12] MEDS ORDERED: FAMOTIDINE 20MG/2ML VIAL IVP ONE (03:40)
[2023-03-12] MEDS: LR 1,000 ML IV SCH ×2 (07:07→16:10)
[2023-03-12] MEDS ORDERED: DIBUCAINE 1% OINTMENT 30GM TOP PRN (18:45)
[2023-03-12] MEDS ORDERED: METHYLERGONOVINE MALEATE 0.2 MG TAB PO PRN (18:45)
[2023-03-12] MEDS ORDERED: DOCUSATE SODIUM 100MG CAPSULE PO PRN (18:45)
[2023-03-12] MEDS ORDERED: OXYTOCIN DRIP 30 UNITS in IV 1 EA IV SCH (18:45)
[2023-03-12] MEDS ORDERED: ACETAMINOPHEN 500 MG TAB PO PRN (18:45)
[2023-03-12] MEDS ORDERED: RHOGAM 300MCG (1500IU) INJ IM SCH (18:45)
[2023-03-12] MEDS ORDERED: ONDANSETRON 4MG 2ML VIAL IV ONE (18:55)
[2023-03-12] MEDS: IBUPROFEN 600MG TAB PO PRN (21:39)
[2023-03-13 06:12] VITALS: BP 137/83
[2023-03-13 06:23] LABS: HEMATOCRIT 29.2 % (36.0-47.0); HEMOGLOBIN 10.2 g/dl (12.0-15.5); MEAN CORPUSCULAR HGB CONC 34.9 g/dl (32.0-36.5); MEAN CORPUSCULAR VOLUME 97.3 fl (80.0-96.0); PLATELET COUNT, AUTOMATED 318 10^3/uL (150-450); WHITE BLOOD COUNT 16.6 10^3/uL (4.0-10.0)
[2023-03-13] MEDS: PRENATAL VITAMINS CHEWABLE TABLET PO SCH (08:32)
[2023-03-13] MEDS: IBUPROFEN 600MG TAB PO PRN (12:05)
[2023-03-13 18:00] VITALS: BP 122/81
[2023-03-14 06:00] VITALS: BP 127/73
[2023-03-14] MEDS: PRENATAL VITAMINS CHEWABLE TABLET PO SCH (08:57)
[2023-03-14] MEDS ORDERED: MEASLES,MUMPS,RUBELLA VACCINE INJ (MMR-II) SC.IMMUN ONE (09:00)
[2023-03-14] MEDS ORDERED: IBUP-1022 PO (10:33)
[2023-03-14] MEDS ORDERED: ACET-683 PO (10:33)
[2023-03-14] MEDS: IBUPROFEN 600MG TAB PO PRN (11:46)
== END 2023-03-14 12:00 | disposition home or self-care (01) | DRG 560 ==
LOC: EEVIPCON 08:55 → M LDI 08:55 → M OBS 03-12 21:04
PROVIDERS: ADMIT Obstetrics & Gynecology; ATTEND Obstetrics & Gynecology
PROC: 3E0DXGC Introduction of Other Therapeutic Substance into Mouth and Pharynx, External Approach (ICD-10-PCS; 2023-03-11)
PROC: 3E033VJ Introduction of Other Hormone into Peripheral Vein, Percutaneous Approach (ICD-10-PCS; 2023-03-11)
PROC: 10E0XZZ Delivery of Products of Conception, External Approach (ICD-10-PCS; principal; 2023-03-12)
DX: O13.4 Gestational [pregnancy-induced] hypertension without significant proteinuria, complicating childbirth (principal); O99.824 Streptococcus B carrier state complicating childbirth; Z37.0 Single live birth; Z3A.38 38 weeks gestation of pregnancy; Z79.899 Other long term (current) drug therapy; Z91.030 Bee allergy status; O32.6XX0 Maternal care for compound presentation, not applicable or unspecified

== ENCOUNTER 2023-04-23 23:30 | Emergency (ER) | payer OTHER ==
[~2023-04-23] VITALS: Ht 160 cm; Wt 57.3 kg
[~2023-04-23 23:30] MED LIST changes: +ACET-683 PO
[2023-04-23 23:33] VITALS: BP 116/66; TEMP 98.9; O2SAT 98
== END 2023-04-24 01:19 | disposition left against medical advice (07) ==
LOC: M ED 23:30
DX: Z53.21 Procedure and treatment not carried out due to patient leaving prior to being seen by health care provider (principal)

== ENCOUNTER 2023-05-27 06:24 | Emergency (ER) | payer OTHER ==
[~2023-05-27] VITALS: Ht 160 cm; Wt 59.4 kg
[2023-05-27] MEDS ORDERED: KETOROLAC 60MG 2ML VIAL IM ONE (08:30)
[2023-05-27 09:01] VITALS: BP 135/59; TEMP 98.6; O2SAT 98
== END 2023-05-27 09:03 | disposition home or self-care (01) ==
LOC: M ED 06:24
DX: S93.401A Sprain of unspecified ligament of right ankle, initial encounter (principal); W01.0XXA Fall on same level from slipping, tripping and stumbling without subsequent striking against object, initial encounter; Y92.009 Unspecified place in unspecified non-institutional (private) residence as the place of occurrence of the external cause; J45.909 Unspecified asthma, uncomplicated; M41.9 Scoliosis, unspecified; F31.9 Bipolar disorder, unspecified
CPT/HCPCS: 73610; 96372; 99283; J1885

== ENCOUNTER → 2023-07-10 | Outpatient (REF) | payer OTHER, MEDICAID | LOC: M LAB REF 12:51 | PROVIDERS: ATTEND Physician Assistant | DX: J02.9 Acute pharyngitis, unspecified (principal) ==

== ENCOUNTER → 2023-12-18 | Outpatient (CLI) | payer SELFPAY | LOC: M PLAIMG 12:11 | PROVIDERS: ATTEND Nurse Practitioner Adult Health | DX: M93.1 Kienbock's disease of adults (principal); M25.531 Pain in right wrist ==

== ENCOUNTER 2024-03-21 16:30 | Emergency (ER) | payer SELFPAY ==
[~2024-03-21] VITALS: Ht 157.5 cm; Wt 49.2 kg
[2024-03-21] MEDS ORDERED: CEPH500C PO (17:56)
[2024-03-21] MEDS ORDERED: SILV40CR TOP (17:56)
[2024-03-21] MEDS: CEPHALEXIN 500 MG CAP PO ONE (18:12)
[2024-03-21 18:13] VITALS: BP 114/68; TEMP 97.8; O2SAT 99
[2024-03-21] MEDS: BOOSTRIX VACCINE (TETANUS/DIPHTH/ACEL. PERTUSSIS) 0.5ML SYR IM ONE (18:13)
[2024-03-21] MEDS: SILVER SULFADIAZINE 1% CR 50 GM JAR TOP ONE (18:13)
== END 2024-03-21 18:18 | disposition home or self-care (01) ==
LOC: M ED 16:30
DX: T23.212A Burn of second degree of left thumb (nail), initial encounter (principal); T23.112A Burn of first degree of left thumb (nail), initial encounter; Y27.8XXA Contact with other hot objects, undetermined intent, initial encounter; Y92.009 Unspecified place in unspecified non-institutional (private) residence as the place of occurrence of the external cause; Y93.89 Activity, other specified; Y99.8 Other external cause status; F31.9 Bipolar disorder, unspecified; J45.909 Unspecified asthma, uncomplicated; M41.9 Scoliosis, unspecified; Z91.030 Bee allergy status; F17.200 Nicotine dependence, unspecified, uncomplicated

== ENCOUNTER 2024-07-06 16:27 | Emergency (ER) | payer MEDICAID, OTHER, SELFPAY ==
[~2024-07-06] VITALS: Ht 160 cm; Wt 49.2 kg
[~2024-07-06 16:27] MED LIST changes: +CEPH500C PO; +ONDA-282 PO; -ONDA4TAB6 PO; +SILV40CR TOP
[2024-07-06 16:28] VITALS: BP 113/59; TEMP 97.8; O2SAT 97
[2024-07-06 18:14] LABS: RSV AMPLIFICATION NEGATIVE (NEGATIVE)
== END 2024-07-06 18:45 | disposition home or self-care (01) ==
LOC: M ED 16:27
DX: U07.1 COVID-19 (principal); Z91.030 Bee allergy status

== ENCOUNTER 2025-01-29 10:18 | Emergency (ER) | payer OTHER ==
[~2025-01-29] VITALS: Ht 160 cm; Wt 53.1 kg
[2025-01-29 10:20] VITALS: BP 113/59; TEMP 97.3; O2SAT 98
== END 2025-01-29 10:40 | disposition left against medical advice (07) ==
LOC: M ED 10:18
DX: Z53.21 Procedure and treatment not carried out due to patient leaving prior to being seen by health care provider (principal)